=== PATIENT | male | born 2000 | race Caucasian/White ===

== ENCOUNTER 2024-04-08 11:34 | Inpatient (IN) | payer MEDICAID ==
[~2024-04-08] VITALS: Ht 177.8 cm; Wt 89.8 kg
[2024-04-08 13:25] LABS: CLARITY URINE CLEAR (CLEAR); COLOR URINE DARK YELLOW (YELLOW); GLUCOSE URINE NEGATIVE (NEGATIVE); KETONES URINE TRACE (NEGATIVE); LEUKOCYTE ESTERASE URINE NEGATIVE (NEGATIVE); NITRITE URINE NEGATIVE (NEGATIVE); OCCULT BLOOD URINE NEGATIVE (NEGATIVE); PH URINE 6.5 (4.5-8.0); PROTEIN URINE TRACE (NEGATIVE); SPECIFIC GRAVITY URINE 1.033 (1.005-1.030)
[2024-04-08 13:33] LABS: BACTERIA URINE 1+; CALCIUM OXALATE CRYSTALS URINE 1+ /lpf; MUCUS URINE 2+ /lpf (NONE/TRACE); RBC URINE 0-2 /hpf (0-2); SQUAMOUS EPITHELIAL CELL URINE NONE SEEN /lpf (RARE/1+); WBC URINE 0-2 /hpf (0-2); YEAST URINE NONE SEEN
[2024-04-08] MEDS: KETOROLAC 30MG/ML VIAL IV ONE (16:40)
[2024-04-08] MEDS ORDERED: DEXAMETHASONE 4MG/ML 1ML VIAL IV ONE (17:15)
[2024-04-08] MEDS: DEXAMETHASONE 4MG/ML 1ML VIAL IV SCH ×2 (17:38→23:52)
[2024-04-08 18:54] LABS: BASOPHILS % 0.8 % (0.0-2.0); EOSINOPHILS % 0.8 % (0.0-5.0); HEMATOCRIT. 46.3 % (42.0-52.0); HEMOGLOBIN. 15.7 g/dL (14.0-18.0); LYMPHOCYTES % 18.9 % (20.0-50.0); MEAN CORPUSCULAR HEMOGLOBIN 29.3 pg (28.0-32.0); MEAN CORPUSCULAR HGB CONC 33.8 g/dL (31.0-37.0); MEAN CORPUSCULAR VOLUME 86.7 fL (80.0-94.0); MEAN PLATELET VOLUME 9.2 fl (7.4-10.4); MONOCYTES % 3.9 % (2.0-8.0); NEUTROPHILS % 75.6 % (40.0-76.0); PLATELET 252 x1000/uL (130-400); RED BLOOD CELL COUNT 5.34 mill/uL (4.7-6.1); RED CELL DISTRIBUTION WIDTH 14.4 % (11.6-14.6); WHITE BLOOD COUNT 10.5 x1000/uL (4.5-11.0)
[2024-04-08 19:03] LABS: CARBON DIOXIDE 30 mEq/L (21-32); CHLORIDE 107 mEq/L (98-107); POTASSIUM 3.8 mEq/L (3.5-5.1); SODIUM 143 mEq/L (136-145)
[2024-04-08 19:04] LABS: CALCIUM 10.4 mg/dL (8.7-10.4)
[2024-04-08 19:08] LABS: CREATININE 0.6 mg/dL (0.6-1.3); GLUCOSE 85 mg/dL (70-105)
[2024-04-08 19:09] LABS: UREA NITROGEN BLOOD 8 mg/dL (9-23)
[2024-04-08 19:10] LABS: ALANINE AMINOTRANSFERASE 33 IU/L (10-49); ASPARTATE AMINOTRANSFERASE 21 IU/L (<34)
[2024-04-08 19:11] LABS: BILIRUBIN TOTAL 1.2 mg/dL (0.1-1.0)
[2024-04-08 19:58] LABS: PARTIAL THROMBOPLASTIN TIME 23.6 sec (23.4-31.0)
[2024-04-08 21:46] LABS: ETHANOL BLOOD < 10 mg/dL (<10)
[2024-04-08] MEDS ORDERED: NALOXONE HCL 0.4MG/ML VIAL IV PRN (22:15)
[2024-04-08] MEDS: DEXT 5%/LACTATED RINGERS 1,000 ML IV SCH (23:00)
[2024-04-09] VITALS (78 sets, daily range): BP systolic 99–151; BP diastolic 39–86; PULSE 62–129; RESP 8–26; TEMP 97–98.5
[2024-04-09] MEDS: MORPHINE SULFATE 2 MG/ML CPJ (NOT FOR IM USE) IV PRN (00:06)
[2024-04-09 03:20] LABS: *AMPHETAMINES SCREEN URINE NEGATIVE (NEGATIVE); *BARBITURATES SCREEN URINE NEGATIVE (NEGATIVE); *BENZODIAZEPINES SCREEN URINE NEGATIVE (NEGATIVE); *COCAINE SCREEN URINE NEGATIVE (NEGATIVE); METHADONE URINE SCREEN NEGATIVE (NEGATIVE)
[2024-04-09 03:21] LABS: CANNABINOID URINE SCREEN PRESUMPTIVE POSITIVE (NEGATIVE); ECSTASY MDMA SCREEN URINE NEGATIVE (NEGATIVE); OPIATES URINE SCREEN NEGATIVE (NEGATIVE); PHENCYCLIDINE URINE SCREEN NEGATIVE (NEGATIVE)
[2024-04-09] MEDS: DEXAMETHASONE 4MG/ML 1ML VIAL IV SCH (05:22)
[2024-04-09] MEDS ORDERED: THROMBIN (BOVINE) 5000 UNITS/VIAL TOP ONE (05:49)
[2024-04-09] MEDS ORDERED: GENTAMICIN SULF 40MG/ML 2ML VIAL ONE (05:49)
[2024-04-09] MEDS ORDERED: LIDOCAINE HCL/EPINEPHRINE 1%-EPI 1:100,000 20 ML VIAL ONE (05:49)
[2024-04-09] MEDS ORDERED: ONDANSETRON HCL 4MG/2ML INJ ONE (07:05)
[2024-04-09] MEDS ORDERED: SUCCINYLCHOLINE CHLORIDE 200MG/10ML IV ONE (07:05)
[2024-04-09] MEDS ORDERED: CEFAZOLIN SODIUM 1000MG/VIAL ONE (07:05)
[2024-04-09] MEDS ORDERED: DEXAMETHASONE 4MG/ML 1ML VIAL ONE (07:05)
[2024-04-09] MEDS ORDERED: PROPOFOL 200MG/20ML VIAL IV ONE ×2 (07:06→08:28)
[2024-04-09] MEDS ORDERED: ROCURONIUM BROMIDE 10MG/ML VIAL 5ML IV ONE ×2 (07:06→08:17)
[2024-04-09] MEDS ORDERED: FENTANYL CITRATE/PF 50MCG/ML 2ML VIAL ONE (07:06)
[2024-04-09] MEDS ORDERED: MIDAZOLAM HCL 2 MG/2 ML VIAL ONE (07:07)
[2024-04-09] MEDS ORDERED: HYDROMORPHONE HCL/PF 2MG/ML CPJ ONE ×2 (07:52→10:22)
[2024-04-09] MEDS ORDERED: FENTANYL CITRATE/PF 50MCG/ML 5ML VIAL ONE (07:55)
[2024-04-09] MEDS ORDERED: HYDROMORPHONE HCL/PF 2MG/ML CPJ IV PRN (08:30)
[2024-04-09] MEDS ORDERED: MEPERIDINE HCL/PF 25MG/ML CPJ IV PRN (08:30)
[2024-04-09] MEDS ORDERED: LABETALOL 5MG/ML 4ML INJ IV PRN (08:30)
[2024-04-09] MEDS ORDERED: ONDANSETRON HCL 4MG/2ML INJ IV PRN (08:30)
[2024-04-09] MEDS ORDERED: NEOSTIGMINE METHYLSULFATE 1MG/ML 10 ML VIAL ONE (10:21)
[2024-04-09] MEDS ORDERED: GLYCOPYRROLATE 0.2 MG/ML 2ML VIAL ONE ×2 (10:22)
[2024-04-09] MEDS: DEXT 5%/LACTATED RINGERS 1,000 ML IV SCH (11:10)
[2024-04-09] MEDS: NICARDIPINE 100 MG in SODIUM CHLORIDE 0.9% 60 ML IV PRN (11:11)
[2024-04-09] MEDS: MORPHINE SULFATE 4 MG/ML INJ (FOR IV/IM USE) IV PRN (11:40)
[2024-04-09] MEDS ORDERED: CEFAZOLIN SODIUM 1000MG/VIAL IV SCH (14:00)
[2024-04-09] MEDS: CEFAZOLIN 1000MG PREMIX 50ML IV SCH (14:07)
[2024-04-10] VITALS (79 sets, daily range): BP systolic 101–144; BP diastolic 51–94; PULSE 54–82; RESP 0–28; TEMP 98–98.7
[2024-04-10] MEDS: HYDROCODONE/ACETAMINOPHEN 7.5/325MG TABLET PO PRN (00:47)
[2024-04-11 00:12] VITALS: BP 113/49; PULSE 65; RESP 16; TEMP 97.3
[2024-04-11] MEDS: MORPHINE SULFATE 2 MG/ML CPJ (NOT FOR IM USE) IV PRN (00:35)
[2024-04-11 04:00] VITALS: BP 111/58; PULSE 64; RESP 17; TEMP 97.8
[2024-04-11 08:00] VITALS: BP 104/55; PULSE 60; RESP 20; TEMP 98.4
[2024-04-11 09:17] LABS: CARBON DIOXIDE 30 mEq/L (21-32); CHLORIDE 105 mEq/L (98-107); POTASSIUM 3.4 mEq/L (3.5-5.1); SODIUM 139 mEq/L (136-145)
[2024-04-11 09:18] LABS: BASOPHILS % 0.1 % (0.0-2.0); CALCIUM 8.9 mg/dL (8.7-10.4); EOSINOPHILS % 0.1 % (0.0-5.0); HEMATOCRIT. 36.9 % (42.0-52.0); HEMOGLOBIN. 12.4 g/dL (14.0-18.0); LYMPHOCYTES % 21.8 % (20.0-50.0); MEAN CORPUSCULAR HGB CONC 33.5 g/dL (31.0-37.0); MEAN CORPUSCULAR VOLUME 86.5 fL (80.0-94.0); MONOCYTES % 7.1 % (2.0-8.0); NEUTROPHILS % 70.9 % (40.0-76.0); PLATELET 194 x1000/uL (130-400); RED BLOOD CELL COUNT 4.27 mill/uL (4.7-6.1); RED CELL DISTRIBUTION WIDTH 14.5 % (11.6-14.6)
[2024-04-11 09:22] LABS: CREATININE 0.6 mg/dL (0.6-1.3)
[2024-04-11 09:23] LABS: UREA NITROGEN BLOOD 8 mg/dL (9-23)
[2024-04-11 09:28] LABS: GLUCOSE 309 mg/dL (70-105)
[2024-04-11 12:00] VITALS: BP 110/53; PULSE 57; RESP 20; TEMP 97.8
[2024-04-11 16:00] VITALS: BP 122/46; PULSE 60; RESP 20; TEMP 97.6
[2024-04-11 20:00] VITALS: BP 113/49; PULSE 68; RESP 19; TEMP 98.6
[2024-04-12] VITALS: BP 106/37; PULSE 71; RESP 20; TEMP 98.8
[2024-04-12 04:00] VITALS: BP 108/40; PULSE 76; RESP 18; TEMP 97.6
[2024-04-12 08:00] VITALS: BP 110/58; PULSE 74; RESP 16; TEMP 97.4
[2024-04-12 12:00] VITALS: BP 96/54; PULSE 82; RESP 18; TEMP 97.9
[2024-04-12 16:00] VITALS: BP 129/64; PULSE 106; RESP 22; TEMP 98.6
[2024-04-12 20:00] VITALS: BP 100/47; PULSE 78; RESP 18; TEMP 97.3
[2024-04-13] VITALS: BP 125/55; PULSE 86; RESP 19; TEMP 99.9
[2024-04-13 04:00] VITALS: BP 116/57; PULSE 72; RESP 19; TEMP 97.1
[2024-04-13 08:00] VITALS: BP 108/58; PULSE 60; RESP 20; TEMP 97.6
[2024-04-13 12:00] VITALS: BP 117/61; PULSE 81; RESP 20; TEMP 97.4
[2024-04-13] MEDS: HYDROCODONE/ACETAMINOPHEN 10/325MG TABLET PO PRN (14:44)
[2024-04-13 16:00] VITALS: BP 110/55; PULSE 80; RESP 20; TEMP 98
[2024-04-13] MEDS ORDERED: HYDR-4009 PO (17:13)
[2024-04-13 17:39] VITALS: BP_SYST 108; BP_SYST 110; BP_DIAS 53; BP_DIAS 55; PULSE 80; PULSE 83; TEMP 98; TEMP 99.5; O2SAT 100; O2SAT 98
== END 2024-04-13 20:47 | disposition home or self-care (01) | DRG 912 ==
LOC: ER 11:34 → MICUNO 22:20 → EDBEDREQ 22:26 → EDBEDREQTM 22:26 → MICUSO 04-09 07:37 → MICUNO 04-09 18:40 → 7WST 04-11 00:20
PROVIDERS: ADMIT Internal Medicine; ATTEND Internal Medicine
PROC: 0RGA071 Fusion of Thoracolumbar Vertebral Joint with Autologous Tissue Substitute, Posterior Approach, Posterior Column, Open Approach (ICD-10-PCS; principal; 2024-04-09)
PROC: 00NX0ZZ Release Thoracic Spinal Cord, Open Approach (ICD-10-PCS; 2024-04-09)
PROC: 0SG0071 Fusion of Lumbar Vertebral Joint with Autologous Tissue Substitute, Posterior Approach, Posterior Column, Open Approach (ICD-10-PCS; 2024-04-09)
PROC: 00NY0ZZ Release Lumbar Spinal Cord, Open Approach (ICD-10-PCS; 2024-04-09)
DX: S32.012A Unstable burst fracture of first lumbar vertebra, initial encounter for closed fracture (principal); S34.101A Unspecified injury to L1 level of lumbar spinal cord, initial encounter; S06.4XAA Epidural hemorrhage with loss of consciousness status unknown, initial encounter; G82.20 Paraplegia, unspecified; F12.90 Cannabis use, unspecified, uncomplicated; R20.0 Anesthesia of skin; R35.0 Frequency of micturition; W10.1XXA Fall (on)(from) sidewalk curb, initial encounter; Y93.67 Activity, basketball; Y92.89 Other specified places as the place of occurrence of the external cause; Y99.8 Other external cause status; X58.XXXA Exposure to other specified factors, initial encounter; Y93.9 Activity, unspecified; Y92.9 Unspecified place or not applicable; M48.061 Spinal stenosis, lumbar region without neurogenic claudication
CPT/HCPCS: 36415; 72080; 72131; 72148; 76000; 80048; 80053; 80305; 80320; 81003; 83036; 85025; 86850; 86900; 97162; 97166; 97530; 97535; 99285; J0330; J0690; J1100; J1170; J1580; J1885; J2250; J2270; J2405; J2704; J2710; J3010; J3490; J7050; J7121; G0480

== ENCOUNTER → 2024-04-26 | Emergency (ER) | payer MEDICAID, OTHER ==
[~2024-04-26] VITALS: Ht 177.8 cm; Wt 63.6 kg
[~2024-04-26] MED LIST: HYDR-4009 PO
[2024-04-26 13:23] VITALS: BP 126/65; PULSE 104; RESP 18; TEMP 98.5; O2SAT 100
== END ==
LOC: ER 13:15
DX: Z48.01 Encounter for change or removal of surgical wound dressing (principal); Z98.890 Other specified postprocedural states
CPT/HCPCS: 99281